=== PATIENT | female | born 1950 | race Caucasian/White ===

== ENCOUNTER → 2016-07-10 | Outpatient (REF) ==
[~2016-07-10] MED LIST: EFFEXOR 3737.5 MG/TA PO; EFFEXOR-XR150 MG PO; RESTASIS 60VL OU; TUMS500 MG; ZANTAC 150MG T150 MG PO; ZESTRIL 10MG10 MG PO
== END ==
LOC: ZLAB.WCH 15:00
DX: Z01.89 Encounter for other specified special examinations (principal)

== ENCOUNTER 2016-11-29 07:58 | Outpatient (CLI) | payer MEDICARE, BC ==
[~2016-11-29] VITALS: Ht 165.2 cm; Wt 55.9 kg
[2016-11-29] VITALS (12 sets, daily range): BP systolic 102–155; BP diastolic 61–89; PULSE 54–65; TEMP 97.6
[2016-11-29] MEDS ORDERED: EFFEXOR 3737.5 MG/TA PO (08:44)
[2016-11-29] MEDS ORDERED: EFFEXOR-XR150 MG PO (08:44)
[2016-11-29] MEDS ORDERED: ZANTAC 150MG T150 MG PO (08:45)
[2016-11-29] MEDS ORDERED: RESTASIS 60VL OU (08:45)
[2016-11-29] MEDS ORDERED: TUMS500 MG (08:46)
[2016-11-29 08:47] LABS: MEAN CELL VOLUME 88 fl (80.0-100.0); MEAN CORPUSCULAR HGB CONC 33 g/dl (33.0-37.0); MEAN PLATELET VOLUME 11.6 fl (7.4-10.4); PLATELET COUNT 161 K/mm3 (130-400); RED BLOOD COUNT 4.04 M/mm3 (4.10-5.30)
[2016-11-29 08:48] LABS: HEMATOCRIT 35.4 % (37.0-47.0); HEMOGLOBIN 11.7 g/dl (12.5-16.0); MEAN CORPUSCULAR HEMOGLOBIN 29 pg (27.0-31.0)
[2016-11-29 08:55] LABS: CREATININE, serum 0.62 mg/dL (0.52-1.25); POTASSIUM 4.1 mmol/L (3.4-5.0)
[2016-11-29 09:00] LABS: PROTHROMBIN TIME 10.8 SECONDS (9.7-12.8)
[2016-11-29] MEDS ORDERED: ZESTRIL 10MG10 MG PO (10:38)
== END 2016-11-29 11:00 | disposition home or self-care (01) ==
LOC: COL.RAD 07:58
PROVIDERS: Internal Medicine Cardiovascular Disease
DX: I08.8 Other rheumatic multiple valve diseases (principal); I44.30 Unspecified atrioventricular block; I45.5 Other specified heart block
CPT/HCPCS: J2175; J2250

== ENCOUNTER → 2017-04-23 | Outpatient (REF) | LOC: COL.CARD 09:42 | DX: R00.2 Palpitations (principal) ==

== ENCOUNTER → 2017-07-18 | Outpatient (REF) ==
[2017-07-18 18:26] LABS: THYROID STIMULATING HORMONE 1.76 uIU/mL (0.465-4.680)
== END ==
LOC: ZLAB.WCH 17:38
PROVIDERS: Nurse Practitioner Family
DX: Z01.89 Encounter for other specified special examinations (principal)

== ENCOUNTER → 2018-07-18 | Outpatient (REF) ==
[2018-07-18 17:00] LABS: THYROID STIMULATING HORMONE 1.33 uIU/mL (0.465-4.680)
== END ==
LOC: ZLAB.WCH 15:48
PROVIDERS: Physician Assistant
DX: Z01.89 Encounter for other specified special examinations (principal)